=== PATIENT | female | born 1995 | race Hispanic/Latino ===

== ENCOUNTER 2024-01-06 05:45 | Inpatient (IN) | payer MEDICAID, OTHER ==
[2024-01-03 14:35] LABS: Hematocrit 34.3 % (34.9-44.5); Hemoglobin 11.6 g/dL (12.0-15.5); Platelet Count 260 10x3/uL (150-450)
[2024-01-03 15:07] LABS: HBSAg Index 0.22 S/CO (0-0.99); Hep B Surf Ag Non-Reactive S/CO (NonReactive)
[2024-01-03 15:09] LABS: Syphilis Antibody Nonreactive (Nonreactive); Syphilis Antibody Index 0.04 S/CO (<1.00 Non-Reactive)
[2024-01-06] MEDS ORDERED: Ondansetron PF 4 MG/2 ML Vial IVP PRN ×3 (06:02→08:58)
[2024-01-06] MEDS ORDERED: Famotidine/PF 20 mg/2ml Vial SLOW IVP PRN (06:02)
[2024-01-06] MEDS ORDERED: Promethazine HCl 25 MG/ML VIAL IM PRN ×2 (06:02→08:58)
[2024-01-06] MEDS ORDERED: hydrALAZINE 20 MG/ML VIAL SLOW IVP PRN ×3 (06:02→11:39)
[2024-01-06 06:03] VITALS: BMI 29.0
[2024-01-06] MEDS ORDERED: Oxytocin 30 units/NS 500 ML 500 ML IV SCH (06:15)
[2024-01-06] MEDS ORDERED: Tranexamic Acid 1,000 MG/10 ML VIAL IVP PRN (06:21)
[2024-01-06] MEDS ORDERED: Misoprostol 200 MCG TAB PR PRN (06:21)
[2024-01-06] MEDS ORDERED: Methylergonovine 0.2 MG/ML VIAL IM PRN (06:21)
[2024-01-06] MEDS ORDERED: Diphenoxylate HCl/Atropine Tablet PO PRN (06:21)
[2024-01-06] MEDS ORDERED: Carboprost 250 MCG/ML AMP IM PRN (06:21)
[2024-01-06] MEDS: Lactated Ringer's 1,000 ML IV SCH (07:02)
[2024-01-06] MEDS: CEFAZOLIN 2 GM in Sodium Chloride 0.9% 100 ML IVPB SCH (07:03)
[2024-01-06 07:32] LABS: #Eosinphils 0.1 10x3/uL (0.0-0.5); #Monocytes 0.6 10x3/uL (0.0-1.1); #Neutrophils 7.4 10x3/uL (1.5-8.4); %Basophils 0.3 % (0.0-2.0); %Eosinophils 0.5 % (0.0-6.0); %Lymphocytes 28.7 % (18.0-47.0); %Monocytes 5.2 % (0.0-10.0); %Neutrophils 64.9 % (40.0-75.0); Mean Corpuscular HGB CONC 33.3 g/dL (32.0-36.0); Mean Corpuscular Hemoglobin 27.4 pg (27.0-33.0); Mean Corpuscular Volume 82.1 fl (81.6-98.3); Platelet Count 264 10x3/uL (150-450); RBC Distribution Width 14.9 % (11.5-14.5); Red Blood Cell (RBC) Count 4.02 10x6/uL (3.90-5.03); White Blood Cell (WBC) Count 11.5 10x3/uL (3.5-10.5)
[2024-01-06 07:50] LABS: ALT (SGPT) 8 U/L (8-55); AST (SGOT) 20 U/L (5-34); Albumin 3.2 g/dL (3.5-5.0); Alkaline Phosphatase 272 U/L (40-110); Anion Gap 15 mmol/L (10-20); BUN (Urea Nitrogen) 8 mg/dL (7.0-18.7); Bilirubin, Total 0.2 mg/dL (0.2-1.2); Calc. Creatinine Clearance 152 mL/min (70-130); Calcium 8.8 mg/dL (7.8-10.44); Carbon Dioxide 16 mmol/L (22-29); Chloride 111 mmol/L (98-107); Estimated GFR 128; Globulin 3.1 g/dL (2.4-3.5); Glucose 74 mg/dL (70-105); Potassium 3.9 mmol/L (3.5-5.1); Protein, Total 6.3 g/dL (6.0-8.3); Sodium 138 mmol/L (136-145)
[2024-01-06] MEDS ORDERED: diphenhydrAMINE 50 MG/ML VIAL IVP PRN (08:58)
[2024-01-06] MEDS ORDERED: Naloxone HCl 0.4 mg/ml Vial IV PRN (08:58)
[2024-01-06] MEDS ORDERED: Naloxone HCl 0.4 mg/ml Vial IVP PRN ×2 (08:58)
[2024-01-06] MEDS ORDERED: Promethazine HCl 25 MG SUPP PR PRN (08:58)
[2024-01-06] MEDS ORDERED: Meperidine HCl/PF 25 MG (1 mL) VIAL SLOW IVP PRN (08:58)
[2024-01-06] MEDS ORDERED: Moisturizing Cream (Eucerin) 113 GM JAR TOP PRN (08:58)
[2024-01-06] MEDS ORDERED: fentaNYL 50 mcg/mL 1 mL Vial SLOW IVP PRN (08:58)
[2024-01-06] MEDS ORDERED: Ketorolac Tromethamine 30 MG (1 mL) VIAL IVP SCH (09:00)
[2024-01-06] MEDS ORDERED: Communication Order-Pharmacy FS SCH (09:00)
[2024-01-06 10:06] LABS: Creatinine, Urine Less than 20.00 mg/dL (47-110); Protein, Urine Random Quant Less than 10 mg/dL (1-14)
[2024-01-06] MEDS: HYDROmorphone 0.5 MG/0.5 ML SYRINGE SLOW IVP PRN (10:44)
[2024-01-06] MEDS ORDERED: Lanolin Ointment 7 GM TUBE TOP PRN (11:39)
[2024-01-06] MEDS ORDERED: HYDROcodone/Acetaminophen 5/325 mg Tablet PO PRN (11:39)
[2024-01-06] MEDS: Morphine PF 10 MG/10 ML VIAL ONE (11:42)
[2024-01-06] MEDS: ePHEDrine Sulfate 50 MG/10 ML VIAL ONE (11:50)
[2024-01-06] MEDS: Dexmedetomidine 200 MCG/2 ML VIAL ONE (11:50)
[2024-01-06] MEDS: Oxytocin 10 UNITS/ML VIAL ONE ×4 (11:50→11:53)
[2024-01-06] MEDS: Phenylephrine 40 MG/NS 250 ML 250 ML ONE (11:51)
[2024-01-06] MEDS: Erythromycin Base 0.5% Oint 1 GM TUBE ONE (11:51)
[2024-01-06] MEDS: Hepatitis B Vaccine 10 MCG/0.5 ML SYR ONE (11:51)
[2024-01-06] MEDS: Phytonadione Neonatal 1 MG/0.5 ML AMP ONE (11:51)
[2024-01-06] MEDS: Midazolam HCl 2 mg/2 ml Vial ONE (11:51)
[2024-01-06] MEDS: PHENYLEPHRINE-NS 100 MCG/ML 10 ML SYRINGE ONE (11:51)
[2024-01-06] MEDS: fentaNYL 50 mcg/mL 1 mL Vial ONE (11:53)
[2024-01-06] MEDS: Ketorolac Tromethamine 30 MG (1 mL) VIAL IVP PRN (12:03)
[2024-01-06] MEDS: Boostrix 0.5 ML (Tdap) VIAL (>/=7 yrs of age) IM ONE (12:07)
[2024-01-06] MEDS: Acetaminophen 325 MG TAB PO PRN (17:01)
[2024-01-06] MEDS: diphenhydrAMINE 25 MG CAP PO PRN (17:01)
[2024-01-06] MEDS: Simethicone Chewable 80 MG TAB PO PRN (20:47)
[2024-01-06] MEDS: Docusate 100 MG CAP PO SCH (20:47)
[2024-01-06] MEDS: Ferrous Sulfate 325 MG TAB PO SCH (23:23)
[2024-01-07 03:31] LABS: Hematocrit 31.2 % (34.9-44.5); Mean Corpuscular HGB CONC 32.1 g/dL (32.0-36.0); Mean Corpuscular Hemoglobin 26.8 pg (27.0-33.0); Mean Corpuscular Volume 83.6 fl (81.6-98.3); Mean Platelet Volume 11.9 fl (7.4-10.4); Platelet Count 216 10x3/uL (150-450); RBC Distribution Width 15.3 % (11.5-14.5); Red Blood Cell (RBC) Count 3.73 10x6/uL (3.90-5.03); White Blood Cell (WBC) Count 9.9 10x3/uL (3.5-10.5)
[2024-01-07] MEDS: Prenatal Vitamin 1 TAB PO SCH (08:11)
[2024-01-07] MEDS: HYDROcodone/Acetaminophen 5/325 mg Tablet PO PRN (08:31)
[2024-01-07] MEDS: Ibuprofen 800 MG TAB PO SCH (13:15)
[2024-01-07] MEDS: Sertraline 100 MG TAB PO SCH (13:15)
[2024-01-08 07:53] VITALS: BP 120/69; TEMP 98.3
[2024-01-08] MEDS ORDERED: Famotidine 20 MG TAB PO PRN (09:14)
[2024-01-08] MEDS: Simethicone Chewable 80 MG TAB PO SCH (09:19)
[2024-01-08] MEDS ORDERED: Simethicone Chewable 80 MG TAB PO SCH ×2 (09:30→13:00)
== END 2024-01-08 13:10 | disposition home or self-care (01) | DRG 788 ==
LOC: CSHLD 05:45 → CSHPP 11:38
PROVIDERS: ADMIT Obstetrics & Gynecology; ATTEND Obstetrics & Gynecology
PROC: 10D00Z1 Extraction of Products of Conception, Low, Open Approach (ICD-10-PCS; principal; 2024-01-06)
DX: O34.211 Maternal care for low transverse scar from previous cesarean delivery (principal); Z3A.39 39 weeks gestation of pregnancy; O99.02 Anemia complicating childbirth; Z37.0 Single live birth; O99.344 Other mental disorders complicating childbirth; F32.A Depression, unspecified; D50.0 Iron deficiency anemia secondary to blood loss (chronic); R03.0 Elevated blood-pressure reading, without diagnosis of hypertension; O75.89 Other specified complications of labor and delivery
CPT/HCPCS: 51702; 80053; 82570; 84156; 85014; 85018; 85027; 85049; 86780; 86850; 86900; 86901; 87340; J1170; J1885; J2250; J2274; J2590; J3010; J3490; J7120